=== PATIENT | female | born 1970 | race Caucasian/White ===

== ENCOUNTER → 2023-05-28 13:32 | Outpatient (REF) | payer SELFPAY | LOC: RAD 13:32 | PROVIDERS: ATTENDING PHYSICIAN Nurse Practitioner | DX: E78.5 Hyperlipidemia, unspecified (principal) | CPT/HCPCS: 75571 ==

== ENCOUNTER → 2023-09-16 06:21 | Day surgery (SDC) | payer BC, SELFPAY | LOC: GI 06:21 | PROVIDERS: ATTENDING PHYSICIAN Internal Medicine Gastroenterology | DX: Z12.11 Encounter for screening for malignant neoplasm of colon (principal); Z80.0 Family history of malignant neoplasm of digestive organs; Z83.719 Family history of colon polyps, unspecified; K64.8 Other hemorrhoids; Q43.8 Other specified congenital malformations of intestine | CPT/HCPCS: G0105 ==

== ENCOUNTER → 2024-04-06 14:27 | Outpatient (REF) | payer BC, SELFPAY | LOC: WDC 14:27 | PROVIDERS: ATTENDING PHYSICIAN Hospitalist | DX: Z12.31 Encounter for screening mammogram for malignant neoplasm of breast (principal) | CPT/HCPCS: 77063; 77067 ==

== ENCOUNTER → 2024-09-06 10:24 | Outpatient (REF) | payer BC, SELFPAY | LOC: RAD 10:24 | PROVIDERS: ATTENDING PHYSICIAN Nurse Practitioner | DX: M06.041 Rheumatoid arthritis without rheumatoid factor, right hand (principal); M06.042 Rheumatoid arthritis without rheumatoid factor, left hand | CPT/HCPCS: 73110; 73130; 73610; 73630 ==